=== PATIENT | female | born 1945 | race American Indian/Alaskan Native ===

== ENCOUNTER 2018-01-20 02:10 | Emergency (ER) | payer MEDICARE ==
[2018-01-20 03:35] LABS: Hematocrit 38.8 % (30.3-42.9); Hemoglobin 13.4 gm/dl (10.1-14.3); Mean Corpuscular HGB Conc 35 % (30-34); Mean Corpuscular Hemoglobin 31 pg (28-32); Mean Corpuscular Volume 89 fl (79-97); Platelet Count 205 K/mm3 (140-440); Red Blood Count 4.36 M/mm3 (3.65-5.03); Red Cell Distribution Width 15.1 % (13.2-15.2)
[2018-01-20 03:54] LABS: BUN/Creatinine Ratio 14; Blood Urea Nitrogen 10 mg/dL (7-17); Calcium 9.2 mg/dL (8.4-10.2); Hemolysis Index 116
[2018-01-20 05:53] LABS: Anisocytosis 1+; Basophils % (Manual) 0 % (0.0-1.8); Eosinophils % (Manual) 0 % (0.0-4.3); Target Cells Few; Total Cells Counted 100
== END 2018-01-20 03:20 | disposition left against medical advice (07) ==
LOC: ED 02:10
DX: R10.9 Unspecified abdominal pain (principal); Z53.21 Procedure and treatment not carried out due to patient leaving prior to being seen by health care provider
CPT/HCPCS: 36415; 80048; 84484; 85007; 85025; 93005; 93010

== ENCOUNTER 2021-12-02 11:20 | Inpatient (IN) | payer SELFPAY ==
[2021-12-02] MEDS ORDERED: SODIUM CHLORIDE 0.9% 1000 ML 1,000 ML IV ONE (12:43)
--- NOTE | 2021-12-02 13:18 | XRay Report ---
CHEST 1 VIEW 12/02/2021 12:59 PM INDICATION / CLINICAL INFORMATION: Altered Mental Status. COMPARISON: None available. FINDINGS: SUPPORT DEVICES: None. HEART / MEDIASTINUM: No significant abnormality. LUNGS / PLEURA: Increased opacity in the right perihilar region and right lower lung. Mild interstiti al prominence in bilateral lungs No pneumothorax. ADDITIONAL FINDINGS: No significant additional findings. IMPRESSION: 1. Increased opacities could represent infiltrate in the right perihilar region right lower lung. Fol low-up after treatment is recommended. Signer Name: Pawel Shah MD Signed: 12/02/2021 1:13 PM Workstation Name: [id number]
[2021-12-02] MEDS ORDERED: cefTRIAXone/NS 1 GM/50 ML 1 GM/50 ML BAG IV ONE (13:22)
--- NOTE | 2021-12-02 15:44 | Cat Scan Report ---
CT HEAD WITHOUT CONTRAST INDICATION / CLINICAL INFORMATION: Altered Mental Status. TECHNIQUE: Axial imaging performed from the skull apex through the skull base without the use of cont rast. Sagittal and coronal reformatted images. All CT scans at this location are performed using CT dose reduction for ALARA by means of automated exposure control. COMPARISON: None available. FINDINGS: CEREBRAL PARENCHYMA: No acute parenchymal abnormality is detected. There is moderate volume loss and moderate chronic microvascular ischemic changes in the white matter. 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 No large chronic infarct. HEMORRHAGE: None. EXTRA-AXIAL SPACES: Normal in size and morphology for the patient's age. VENTRICULAR SYSTEM: Normal in size and morphology for the patient's age. MIDLINE SHIFT OR HERNIATION: None. CEREBELLUM / BRAINSTEM: No significant abnormality. CALVARIUM: No significant abnormality. ORBITS: Normal as visualized. PARANASAL SINUSES / MASTOID AIR CELLS: Normal as visualized. SOFT TISSUES of HEAD: No significant abnormality. ADDITIONAL FINDINGS: None. IMPRESSION: No acute intracranial abnormality. Chronic findings as outlined above. Signer Name: Emeka Smith Jr, MD Signed: 12/02/2021 3:39 PM Workstation Name: [id number]
[2021-12-02 17:23] LABS: Hematocrit 32.9 % (30.3-42.9); Hemoglobin 10.2 gm/dl (10.1-14.3); Mean Corpuscular HGB Conc 31 % (30-34); Mean Corpuscular Volume 85 fl (79-97); Red Blood Count 3.86 M/mm3 (3.65-5.03)
[2021-12-02 17:39] LABS: Calcium 8.1 mg/dL (8.4-10.2)
[2021-12-02 17:44] LABS: Red Cell Distribution Width 38.8 % (13.2-15.2)
[2021-12-02] MEDS ORDERED: methylPREDNISolone Sod Succinate 40 MG/1 ML INJ IV ONE (17:55)
[2021-12-02] MEDS ORDERED: ALBUTEROL 2.5 MG/3 ML NEBU IH ONE (17:56)
--- NOTE | 2021-12-02 17:57 | Emergency Department Report ---
ED General Adult HPI - General Chief complaint: Altered Mental Status Stated complaint: LETHARGIC/AMS PUI?: No Time Seen by Provider: 12/02/21 12:42 Source: family, EMS Mode of arrival: Stretcher Limitations: Altered Mental Status, Physical Limitation - History of Present Illness Initial comments: [facility], call was for ams, on ems arrival, pt placed on nonrebreather, o2 sat 85 room air, increased to 95 with o2. pt normally on nasal canula at unknown liter....pt normally combative at baseline -: Gradual, days(s) Severity scale (0 -10): 10 Associated Symptoms: confusion, shortness of breath Treatments Prior to Arrival: none - Related Data Allergies Allergy/AdvReac Type Severity Reaction Status Date / Time No Known Allergies Allergy Verified 12/02/21 11:37 ED Review of Systems ROS: Stated complaint: LETHARGIC/AMS Other details as noted in HPI Comment: Unobtainable due to pts medical conditions ED Past Medical Hx - Past Medical History Previous Medical History?: Yes Hx Hypertension: Yes Hx Diabetes: Yes (type 2) Hx Dementia: Yes Additional medical history: FTT - Surgical History Additional Surgical History: facial, hysterectomy, - Social History Smoking Status: Current Every Day Smoker Substance Use Type: None ED Physical Exam - General Limitations: Altered Mental Status, Physical Limitation General appearance: lethargic, in distress - Head Head exam: Present: atraumatic, normocephalic - Eye Eye exam: Present: normal appearance - ENT ENT exam: Present: mucous membranes moist - Neck Neck exam: Present: normal inspection - Respiratory Respiratory exam: Present: wheezes, rales, decreased breath sounds - Cardiovascular Cardiovascular Exam: Present: normal rhythm, tachycardia. Absent: systolic murmur, diastolic murmur, rubs, gallop - GI/Abdominal GI/Abdominal exam: Present: soft, normal bowel sounds - Extremities Exam Extremities exam: Present: normal inspection - Back Exam Back exam: Present: normal inspection - Skin Skin exam: Present: warm, dry, intact, normal color. Absent: rash ED Course Vital Signs 12/02/21 12/02/21 12/02/21 11:31 13:49 14:02 Temperature 98.2 F Pulse Rate 122 H 92 H Respiratory 16 23 24 Rate Blood Pressure Blood Pressure 127/96 103/51 [Left] O2 Sat by Pulse 95 96 100 Oximetry 12/02/21 12/02/21 12/02/21 15:27 18:50 18:51 Temperature 98.2 F Pulse Rate 120 H 112 H 110 H Respiratory 21 31 H 27 H Rate Blood Pressure 128/98 Blood Pressure 112/95 128/98 [Left] O2 Sat by Pulse 98 83 L Oximetry ED Medical Decision Making - Lab Data Result diagrams: 12/02/21 12:55 12/02/21 12:55 - EKG Data -: EKG Interpreted by Me EKG shows normal: sinus rhythm Rate: tachycardia - Radiology Data Radiology results: report reviewed, image reviewed - Medical Decision Making work up showed pneumonia abx given rt given donal noted with elevated trop , Critical care attestation.: If time is entered above; I have spent that time in minutes in the direct care of this critically ill patient, excluding procedure time. ED Disposition Clinical Impression: SOB (shortness of breath), Hypoxia, Altered mental status, DONAL (acute kidney injury), Pneumonia, Hypernatremia Disposition: ADMITTED INPATIENT Is pt being admited?: Yes Does the pt Need Aspirin: No Condition: Stable Instructions: Bacterial Pneumonia (ED) Referrals: ELDON BELL MD [Primary Care Provider] - 3-5 Days
[2021-12-02 18:06] LABS: INR 1.2 (0.87-1.13)
--- NOTE | 2021-12-02 18:10 | History and Physical Report ---
History of Present Illness Chief complaint: She is weak and confused History of present illness: 76 YO Female with Vascular Dementia, Cerebral Atherosclerosis, HTN, DM, Nicotine Dependence, Malnutrition presents to ED for evaluation. Patient is lethargic, with diminished cognition and provide history. Patient history provided by family who are at bedside during exam and interview. As per grandson the patient has experienced increased confusion over the past 1 week with concomitant weakness and decreased responsiveness. EMS was notified and upon arrival the patient was found to be in distress and subsequent transported to [facility] for further care and evaluation of the aforementioned symptoms. The patient was seen and evaluated in the emergency department. All lab and imaging studies reviewed. The patient was found to have a pulse oximetry of 85% which is consistent with acute hypoxemic respiratory failure. Chest x-ray revealed bilateral pneumonia complicated by septic shock, acute kidney injury, metabolic encephalopathy, toxic metabolic encephalopathy, as well as metabolic acidosis. Patient also found to have laboratory findings consistent with NSTEMI. Patient also initiated on therapeutic anticoagulation. Patient was also found to have volume depletion. Patient remained hypoxemic on supplemental oxygen. Patient also found to be unable to protect her airway. Patient was intubated in the emergency department and placed on ventilatory support. Patient also initiated on IV pressor support after volume resuscitation due to persistent septic shock. Patient admitted to ICU with multiple organ system failure. Patient initiated on sepsis protocol as well as pneumonia protocol. Cardiology team consulted in ED. Critical care team consulted in ED. Nephrology team consulted in ED. No further history is obtainable. Patient family denies reports of fever, chills, chest pain, palpitation, adductive cough, skin rash, recent contact. Patient recently recovered from coronavirus infection. No prior admission for review. No medication at the time of admission for reconciliation. Advanced care planning conducted in ED. Past History Past Medical History: diabetes, hypertension, other (See HPI) Past Surgical History: hysterectomy Social history: , smoking. denies: alcohol abuse, prescription drug abuse Family history: diabetes, hypertension Medications and Allergies Allergies Allergy/AdvReac Type Severity Reaction Status Date / Time No Known Allergies Allergy Verified 12/02/21 11:37 Review of Systems ROS unobtainable: due to endotracheal tube, due to mental status Exam - Constitutional Vitals: Temp Pulse Resp BP Pulse Ox 98.2 F 120 H 21 112/95 98 12/02/21 11:31 12/02/21 15:27 08/02/22 15:27 12/02/21 15:27 12/02/21 15:27 General appearance: Present: severe distress - EENT Eyes: Present: PERRL, miosis ENT: hearing decreased - Neck Neck: Present: supple, normal ROM - Respiratory Respiratory effort: labored, accessory muscle use Respiratory: bilateral: diminished - Cardiovascular Heart Sounds: Present: S1 & S2. Absent: rub, click - Extremities Extremity abnormal: cold, pulses diminished Peripheral Pulses: abnormal (Capillary refill greater than 3.5 seconds) - Abdominal General gastrointestinal: Present: soft, non-tender, non-distended, normal bowel sounds Female genitourinary: Present: normal - Integumentary Integumentary: Present: dry, clammy, decreased turgor - Musculoskeletal Musculoskeletal: generalized weakness - Psychiatric Psychiatric: no appropriate mood/affect, no intact judgment & insight, no memory intact - Neurologic Neurologic: CNII-XII intact, no focal deficits, no gait normal HEART Score - HEART Score Troponin: Troponin T 0.094 ng/mL (0.00-0.029) H 12/02/21 12:55 Results - Labs CBC & Chem 7: 12/02/21 12:55 12/02/21 12:55 Labs: Abnormal lab results 12/02/21 12/02/21 12/02/21 Range/Units 12:55 12:55 12:55 MCH 26 L (28-32) pg RDW 38.8 H (13.2-15.2) % PT 16.9 H (12.2-14.9) Sec. INR 1.20 H (0.87-1.13) Carbon Dioxide 19 L (22-30) mmol/L BUN 34 H (7-17) mg/dL Creatinine 1.8 H (0.6-1.2) mg/dL Glucose 104 H (65-100) mg/dL Calcium 8.1 L (8.4-10.2) mg/dL Total Creatine Kinase 192 H (30-135) units/L Troponin T 0.094 H (0.00-0.029) ng/mL NT-Pro-B Natriuret Pep (0-900) pg/mL Total Protein 4.5 L (6.3-8.2) g/dL Albumin 2.0 L (3.9-5) g/dL Salicylates (2.8-20.0) mg/dL 12/02/21 12/02/21 Range/Units 12:55 12:55 MCH (28-32) pg RDW (13.2-15.2) % PT (12.2-14.9) Sec. INR (0.87-1.13) Carbon Dioxide (22-30) mmol/L BUN (7-17) mg/dL Creatinine (0.6-1.2) mg/dL Glucose (65-100) mg/dL Calcium (8.4-10.2) mg/dL Total Creatine Kinase 206 H (30-135) units/L Troponin T (0.00-0.029) ng/mL NT-Pro-B Natriuret Pep 3032 H (0-900) pg/mL Total Protein (6.3-8.2) g/dL Albumin (3.9-5) g/dL Salicylates < 0.3 L (2.8-20.0) mg/dL Assessment and Plan - Patient Problems (1) Septic shock Current Visit: Yes Status: Acute Plan to address problem: CBC, CMP, IV fluid resuscitation therapy, IV pressor support, IV antibiotic therapy, monitor urine output every shift, maintain mean arterial pressure greater than equal to 65, IV pressor support, monitor fluid balance. The high probability of a clinically significant, sudden or life threatening deterioration of the [cardiac, pulmonary, renal, neuro, infectious disease] system(s) required my full and direct attention, intervention and personal management. The aggregate critical care time was [120] minutes. This time is in addition to time spent performing reported procedures but includes the following: [x] Data Review and interpretation [x] Patient assessment and monitoring of vital signs [x] Documentation [x] Medication orders and management (2) Acute respiratory failure Current Visit: Yes Status: Acute Qualifiers: Respiratory failure complication: hypoxia Qualified Code(s): J96.01 - Acute respiratory failure with hypoxia Plan to address problem: Chest x-ray, supplemental oxygen, patient intubated and on ventilatory support, spontaneous breathing trial in a.m., daily sedation holiday, wean vent as tolerated. Daily arterial blood gas (3) Metabolic acidosis Current Visit: Yes Status: Acute Plan to address problem: IV for resuscitation therapy, IV bicarbonate therapy, BMP, repeat BMP in a.m. (4) Pneumonia Current Visit: Yes Status: Acute Plan to address problem: Pneumonia protocol: Chest x-ray, CBC, CMP, supplemental oxygen, pulse oximetry. (5) Toxic metabolic encephalopathy Current Visit: Yes Status: Acute Plan to address problem: Treat sepsis, IV fluid resuscitation therapy, serial lactic acid level, BMP, repeat BMP in AM. (6) Acute kidney injury (DONAL) with acute tubular necrosis (ATN) Current Visit: Yes Status: Acute Plan to address problem: Nephrology team consulted, IV fluid resuscitation therapy, repeat BMP in a.m., monitor fluid balance, (7) NSTEMI (non-ST elevated myocardial infarction) Current Visit: Yes Status: Acute Plan to address problem: Therapeutic anticoagulation, cardiology team consulted, morphine, submental oxygen, nitro, aspirin, (8) DVT prophylaxis Current Visit: Yes Status: Acute Plan to address problem: SCDs bilateral extremities while in bed (9) Advance care planning Current Visit: Yes Status: Acute Plan to address problem: Disease education data, care plan discussed, diagnosis progress discussed, prognosis discussed, patient is full code for this time. Patient poor prognosis discussed with family. Patient family acknowledged understanding and agreement with current care plan. +30 minutes. (10) Preventative health care Current Visit: Yes Status: Acute Plan to address problem: Patient family counseled regarding risk factor reduction, CODE STATUS, patient and family acknowledge understanding instructions. +30 minutes.
[2021-12-02 18:22] LABS: ABG Base Excess -13.1 mmol/L (-2.0-3.0); ABG HCO3 9.8 mmol/L (20.0-26.0); ABG Oxygen Saturation 76.4 % (95.0-99.0); ABG PCO2 16.5 mm Hg; ABG PH 7.39 pH Units (7.350-7.450); ABG PO2 44.6 mm Hg (80.0-90.0)
[2021-12-02] MEDS ORDERED: SODIUM BICARB 8.4% 50 MEQ/50 ML SYRINGE IV ONE ×3 (19:49→21:00)
[2021-12-02] MEDS ORDERED: oxyCODONE /ACETAMINOPHEN 5-325MG TAB PO PRN (19:53)
[2021-12-02] MEDS ORDERED: ACETAMINOPHEN 650 MG RECT SUPP PR PRN (19:53)
[2021-12-02] MEDS ORDERED: ALBUTEROL 2.5 MG/3 ML NEBU IH PRN (19:53)
[2021-12-02] MEDS ORDERED: HYDROmorphone 0.5 MG/0.5 ML INJ IV PRN (19:53)
[2021-12-02] MEDS ORDERED: traMADol 50 MG TAB PO PRN (19:59)
[2021-12-02] MEDS ORDERED: ACETAMINOPHEN 325 MG TAB PO PRN (19:59)
[2021-12-02] MEDS ORDERED: SODIUM CHLORIDE 0.45% IV SCH (20:00)
[2021-12-02] MEDS ORDERED: ATROPINE 1 MG/ML VIAL IV SCH (20:00)
[2021-12-02] MEDS ORDERED: NORepinephrine/NS 8 MG-250 ML 8 MG/250 ML INFUS..BTL IV ONE (20:18)
[2021-12-02] MEDS ORDERED: SODIUM CHLORIDE 0.9% 1000 ML 1,000 ML ONE ×3 (20:19→21:02)
--- NOTE | 2021-12-02 20:44 | XRay Report ---
CHEST 1 VIEW 12/02/2021 8:09 PM INDICATION / CLINICAL INFORMATION: cent line. COMPARISON: December 02 earlier today FINDINGS: SUPPORT DEVICES: ET tube is 6 cm above the ute. Right jugular line tip overlies the SVC HEART / MEDIASTINUM: No significant abnormality. LUNGS / PLEURA: Bilateral pulmonary opacities are increased since earlier today No pneumothorax. ADDITIONAL FINDINGS: NG tube appears to extend into the stomach however tip is not well seen Signer Name: Pawel Shah MD Signed: 12/02/2021 8:39 PM Workstation Name: [id number]
[2021-12-02 20:52] VITALS: BP 94/46
[2021-12-02] MEDS ORDERED: SODIUM BICARB 8.4% 50 MEQ/50 ML SYRINGE IV SCH (21:00)
[2021-12-02] MEDS ORDERED: ENOXAPARIN 60 MG/0.6 ML INJ SUB-Q SCH (21:00)
--- NOTE | 2021-12-02 21:00 | XRay Report ---
ABDOMEN 1 VIEW 12/02/2021 8:16 PM INDICATION / CLINICAL INFORMATION: ng placement. COMPARISON: None available. FINDINGS: NG tube extends within the stomach. ET tube is 4.9 cm above the ute. On increased inters titial prominence and opacities in bilateral lungs Signer Name: Pawel Shah MD Signed: 12/02/2021 8:55 PM Workstation Name: [id number]
[2021-12-02] MEDS ORDERED: AZITHROMYCIN/NS 500 MG/250 ML 500 MG/250 ML BAG IV SCH (21:30)
--- NOTE | 2021-12-02 21:30 | Procedure Note ---
Date of procedure: 12/02/21 Pre-op diagnosis: Septic shock Post-op diagnosis: same Procedure: Endotracheal intubation Elizabeth scope was utilized to advance 7.5 cm ET tube into the trachea. Anesthesia: local
--- NOTE | 2021-12-02 21:33 | Procedure Note ---
Date of procedure: 12/02/21 Pre-op diagnosis: Septic shock Post-op diagnosis: same Procedure: Right internal jugular vein triple-lumen catheter placement under ultrasound guidance The patient was prepped and draped in the usual sterile fashion. Timeout was taken with the patient's nurse at bedside to verify the correct patient, the correct procedure, the correct operative site. The Seldinger technique was utilized using ultrasound guidance to advance a seeker needle into the right internal jugular vein without difficulty. A guidewire was then advanced to the right internal jugular vein without difficulty. The seeker needle was subsequently removed over the guidewire. A scalpel was used to incise the skin at the insertion site. A dilator was then passed over the guidewire into the right internal jugular vein without difficulty and subsequently removed. A preflush triple-lumen catheter was then advanced to the right internal jugular vein and the guidewire removed. 3-0 silk suture was utilized to suture the line in place. A Biopatch was placed at the insertion site. A sterile dressing was utilized to cover the right internal jugular vein triple-lumen catheter. Postoperative chest x-ray shows the triple-lumen catheter in expected position without pneumothorax. Anesthesia: local Surgeon: ALLA BRYAN Estimated blood loss: minimal Pathology: none Condition: critical Disposition: ICU
--- NOTE | 2021-12-02 21:34 | Procedure Note ---
Date of procedure: 12/02/21 Pre-op diagnosis: Septic shock Post-op diagnosis: same Procedure: Right femoral vein arterial line placement under ultrasound guidance The patient was prepped and draped in the usual sterile fashion. Timeout was taken with the patient's nurse at bedside to identify the correct patient, the correct procedure, and the correct operative site. Ultrasound was utilized to localize the right femoral artery. Local anesthesia obtained with 1% lidocaine. A seeker needle was advanced into the right femoral artery without difficulty. A guidewire was advanced into the right femoral artery via the seeker needle and subsequently removed over the guidewire. An arterial catheter was then advanced over the guidewire into the right femoral artery and the guidewire subsequently removed. 3-0 silk suture was utilized to suture the arterial line in place. Surgeon: ALLA BRYAN Estimated blood loss: minimal Pathology: none Condition: critical Disposition: ICU
[2021-12-02] MEDS ORDERED: EPINEPHrine 1 MG/10 ML SYRINGE ONE (21:38)
[2021-12-02] MEDS ORDERED: ENOXAPARIN 100 MG/1 ML INJ SUB-Q SCH (22:00)
[2021-12-02] MEDS ORDERED: FAMOTIDINE 20 MG/2 ML INJ IV SCH ×2 (22:00)
--- NOTE | 2021-12-02 22:04 | Event Note ---
Date: 12/02/21 HIMANSHU APPIAH called on 76-year-old -Faro[place] female admitted for multiple medical problems including pneumonia, septic shock, toxic metabolic encephalopathy. Resuscitative measures were commenced according to ACLS protocol. Patient had multiple rounds of epinephrine and sodium bicarb. All resuscitative measures proved futile. Upon exam: Pupils were fixed and dilated Chest: No breath sounds Cardiovascular exam: No heart sounds and no peripheral pulses Abdomen: Soft Extremities: Cold and clammy Central nervous system: No reflexes Patient pronounced at 9:40 PM December 02, 2021. Family members were by the bedside and well promptly notified.
[2021-12-02 22:26] LABS: Total Cells Counted 100
[2021-12-02 22:48] LABS: Anisocytosis 1+; Band Neutrophils # (Manual) 1.6 K/mm3; Basophils % (Manual) 0 % (0.0-1.8); Eosinophils % (Manual) 0 % (0.0-4.3); Myelocytes # (Manual) 0.2 K/mm3; Promyelocytes # (Manual) 0.2 K/mm3
[2021-12-02 22:49] LABS: Hypochromasia 1+; Ovalocytes Few; Platelet Estimate Consistent w Auto; Target Cells 1+
[2021-12-02 23:05] LABS: Platelet Count 168 K/mm3 (140-440)
[2021-12-02 23:06] LABS: Mean Platelet Volume 11.9 fl (6-12)
[2021-12-03] MEDS ORDERED: cefTRIAXone/NS 2 GM/100 ML 2 GM/100 ML BAG IV SCH (02:00)
--- NOTE | 2021-12-04 18:18 | Electrocardiograph Report ---
[facility] Test Date: 2021-12-02 Test Time: 18:42:53 Pat Name: HARVEY BEAULIEU Department: Room: [place] [address] Gender: F 3D Artist: GOLDIE : 1945 Requested By: ALLA BRYAN Order Number: [id number] Reading MD: Malachi Worrell Measurements Intervals [place] Rate: 111 P: 91 [place]: 138 QRS: 75 QRSD: 62 T: 98 QT: 320 QTc: 435 Interpretive Statements Poor quality ECG Sinus tachycardia Low voltage, extremity leads No previous ECG available for comparison Electronically Signed On 12-04-2021 18:18:39 EDT by Malachi Worrell
== END 2021-12-02 23:59 | DRG 871 ==
LOC: ED 11:20 → CC1 19:53
PROVIDERS: ADMIT Internal Medicine; ATTEND Internal Medicine
PROC: 5A1935Z Respiratory Ventilation, Less than 24 Consecutive Hours (ICD-10-PCS; principal; 2021-12-02)
PROC: 0BH17EZ Insertion of Endotracheal Airway into Trachea, Via Natural or Artificial Opening (ICD-10-PCS; 2021-12-02)
PROC: 5A09357 Assistance with Respiratory Ventilation, Less than 24 Consecutive Hours, Continuous Positive Airway Pressure (ICD-10-PCS; 2021-12-02)
PROC: 4A033R1 Measurement of Arterial Saturation, Peripheral, Percutaneous Approach (ICD-10-PCS; 2021-12-02)
PROC: 02HV33Z Insertion of Infusion Device into Superior Vena Cava, Percutaneous Approach (ICD-10-PCS; 2021-12-02)
PROC: B548ZZA Ultrasonography of Superior Vena Cava, Guidance (ICD-10-PCS; 2021-12-02)
PROC: 04HY32Z Insertion of Monitoring Device into Lower Artery, Percutaneous Approach (ICD-10-PCS; 2021-12-02)
DX: A41.9 Sepsis, unspecified organism (principal); G92.8 Other toxic encephalopathy; J18.9 Pneumonia, unspecified organism; J96.01 Acute respiratory failure with hypoxia; R65.21 Severe sepsis with septic shock; N17.0 Acute kidney failure with tubular necrosis; I21.4 Non-ST elevation (NSTEMI) myocardial infarction; E87.0 Hyperosmolality and hypernatremia; F17.200 Nicotine dependence, unspecified, uncomplicated; F01.50 Vascular dementia, unspecified severity, without behavioral disturbance, psychotic disturbance, mood disturbance, and anxiety; I67.2 Cerebral atherosclerosis; I10 Essential (primary) hypertension; E11.9 Type 2 diabetes mellitus without complications; Z83.3 Family history of diabetes mellitus; Z82.49 Family history of ischemic heart disease and other diseases of the circulatory system; Z90.710 Acquired absence of both cervix and uterus
CPT/HCPCS: 36415; 70450; 71045; 74018; 80053; 80320; 82140; 82550; 82803; 83880; 84484; 85007; 85025; 85610; 87040; 87076; 87186; 93005; 94002; G0378; J2354; J3490; G0480; J0171; J0696; J1650; J7030